=== PATIENT | female | born 1940 | race Caucasian/White ===

== ENCOUNTER 2023-10-01 14:58 | Emergency (ER) | payer SELFPAY ==
[2023-10-01 15:12] VITALS: BP 160/86
--- NOTE | 2023-10-01 15:28 | ED.SKININJ ---
HPI-Injury
General
Chief Complaint: Skin Problem
Source: patient
Exam Limitations: none
Time Seen by Provider: 10/01/23 15:18
Travel History
Have you had any contact with someone who has COVID-19?: No
Do you have any symptoms of coronavirus? Fever > 100 degrees, chills, cough, shortness of breath, sore throat, loss of taste or smell, muscle aches, or headache?: No
History of Present Illness-Injury
Initial Injury comments:
83-year-old female presents with 2 to 3 days worth of painful rash on the right chest. She had chickenpox as a child. No fever. No headache. No other complaints at this time
Phy Exam
Physical Exam
Physical Exam:
General: Well-appearing female no acute respiratory distress
HEENT: Normocephalic atraumatic
Skin: Painful vesicular rash right side of body of the chest at around the level of T7. No underlying fluctuance or induration
Extremities: No cyanosis
Course
Orders/Labs/Results
Orders:
Orders
10/01/23 15:27
Valacyclovir HCl [Valtrex] 1,000 mg PO NOW STA
Vital Signs
Initial and Last Documented VS:
Initial Vital Signs
Temp Pulse Resp BP Pulse Ox
98.2 F 76 18 160/86 98
10/01/23 15:12 10/01/23 15:12 10/01/23 15:12 10/01/23 15:12 10/01/23 15:12
Last Documented Vital Signs
Temp Pulse Resp BP Pulse Ox
98.2 F 76 18 160/86 98
10/01/23 15:12 10/01/23 15:12 10/01/23 15:12 10/01/23 15:12 10/01/23 15:12
MDM/Problems Addressed
Differential Diagnosis Includes:
Painful rash right side of body is likely herpes zoster. No underlying cellulitis. will treat with Valtrex and prednisone. Stable for d/c.
*Critical Care Note
Total Time (30-74mins, 75-104mins- exclusive of procedures): Not Applicable
ED Attending Note
-
Portions of this chart may have been created with voice recognition software.� Occasional wrong word or��sound alike� substitutions may have occurred due to the inherent limitations of voice recognition software.
Discharge Plan
Departure
Patient Disposition: Home (Routine Discharge)
Date of Disposition: 10/01/23
Time of Disposition: 15:31
Patient with high blood pressure during this ER visit?: No
Discharge Problem:
Shingles
Instructions: Shingles (DC)
Prescriptions:
New
valacyclovir [Valtrex] 1 gram tablet
1,000 mg PO TID Qty: 29 0RF
prednisone 10 mg Tablet
See Rx Instructions .ROUTE .COMPLEX Qty: 30 0RF
Rx Instructions:
Take By Mouth:
40 mg daily x3 days, 30 mg daily x3 days,
20 mg daily x3 days, 10 mg daily x3 days.
Activity Restrictions/Additional Instructions:
Take prednisone as directed for pain and inflammation. Use antiviral medicines as directed. Return for worsening symptoms otherwise
Interventions
Interventions:
*Risk Screen - Suicide Last Done: 10/01/23 15:12
*General Assessment Last Done: 10/01/23 15:12
*Neglect/Abuse Screening Last Done: 10/01/23 15:12
[2023-10-01] MEDS: VALTREX 1000 MG PO (15:40)
== END 2023-10-01 16:12 | disposition home or self-care (01) ==
LOC: EMR 14:58
PROVIDERS: EMERGENCY PHYSICIAN Emergency Medicine
DX: B02.9 Zoster without complications (principal)
CPT/HCPCS: 99283